=== PATIENT | male | born 1995 | race Caucasian/White ===

== ENCOUNTER 2021-03-11 17:15 | Emergency (ER) | payer OTHER ==
[~2021-03-11] VITALS: Ht 180.3 cm; Wt 77.1 kg
[~2021-03-11 17:15] MED LIST: CIPRO500 MG PO; KETO10TA2 PO
== END 2021-03-11 19:34 | disposition home or self-care (01) ==
LOC: ER 17:15
DX: L50.8 Other urticaria (principal)

== ENCOUNTER 2022-12-05 09:35 | Emergency (ER) | payer OTHER ==
[~2022-12-05] VITALS: Ht 180.3 cm; Wt 79.4 kg
[2022-12-05] MEDS ORDERED: POLY119PG PO (16:38)
== END 2022-12-05 16:47 ==
LOC: ER 09:35
DX: K59.00 Constipation, unspecified (principal); R14.0 Abdominal distension (gaseous); N32.89 Other specified disorders of bladder